=== PATIENT | male | born 1930 | race African-American/Black ===

== ENCOUNTER 2017-09-09 14:06 | Inpatient (IN) | payer OTHER ==
[~2017-09-09] VITALS: Ht 182.9 cm; Wt 78.0 kg
--- NOTE | ~2017-09-09 | 2DMMODE ---
[facility] [address] [place] [address] 2 D/M-MODE ECHOCARDIOGRAM Name: PRAMOD DODGE Room #: 351-P [facility] IN .R.#: [id number] Admission: 09/09/17 Attend Phys: Demario Piper, Discharge: Date of : 32 Date of Service: 09/10/17 1026 Report #: [id number] THIS REPORT FOR: //name// APPROVED REPORT Study performed: 09/10/2017 08:02:15 EXAM: Comprehensive 2D, Doppler, and color-flow Echocardiogram Patient Location: Echo lab Room #: [facility] Status: routine BSA: 2.00 HR: 67 bpm BP: 133/71 mmHg Rhythm: NSR Other Information Study Quality: Technically Difficult Technically limited study due to No parasternal window, lung disease. Indications Syncope Hx: Tobacco abuse, HTN, DM 2D Dimensions RVDd: 36.34 mm LVEF(%): 54.19 (>50%) IVSd: 10.76 (7-11mm) LVOT Diam: 19.69 (18-24mm) LVDd: 32.39 mm PWd: 12.35 (7-11mm) LVDs: 23.59 (25-40mm) Aortic Root: 31.33 mm Duque's LVEF: 54.19 % Volumes Left Atrial Volume (Systole) Single Plane 4CH: 46.98 mL Single Plane 2CH: 58.16 mL LA ESV Index: 29.00 mL/m2 Aortic Valve AoV Peak Preston.: 1.24 m/s AO Peak Gr.: 6.12 mmHg LVOT Max P.22 mmHg LVOT Max V: 0.90 m/s GATO Vmax: 2.21 cm2 [facility] [address] [address] 2 D/M-MODE ECHOCARDIOGRAM Name: PRAMOD DODGE Room #: 351-[facility] IN ..#: [id number] Admission: 09/09/17 Attend Phys: Demario Piper, Discharge: Date of : 32 Date of Service: 09/10/17 1026 Report #: [id number] Mitral Valve E/A Ratio: 0.9 MV Decel. Time: 286.39 ms MV E Max Preston.: 0.85 m/s MV A Preston.: 0.97 m/s MV PHT: 83.05 ms IVRT: 87.66 ms Pulmonary Vein P Vein S: 0.58 m/s P Vein A: 0.31 m/s P Vein D: 0.46 m/s P Vein A Dur.: 120.0 msec P Vein S/D Ratio: 1.26 Tricuspid Valve TR Peak Preston.: 2.58 m/s RAP Estimate: 5.00 mmHg TR Peak Gr.: 26.60 mmHg PA Pressure: 32.00 mmHg Left Ventricle The left ventricle is normal size. Borderline concentric left ventricular hypertrophy. The left ventricular systolic function is normal. The left ventricular ejection fraction is within the normal range. LVEF is 55-60%. Grade I - abnormal relaxation pattern. Right Ventricle The right ventricle is normal size. The right ventricular systolic function is normal. Atria The left atrium size is normal. The right atrium size is normal. Aortic Valve The Aortic valve is sclerotic. No aortic regurgitation is present. There is no aortic valvular stenosis. Mitral Valve There is mitral annular calcification. Mitral valve leaflets are mildly thickened. Mild mitral regurgitation. No evidence of mitral valve stenosis. Tricuspid Valve The tricuspid valve is normal in structure. Mild tricuspid regurgitation. Estimated PAP 32 mmHg. Pulmonic Valve [address] [address] 2 D/M-MODE ECHOCARDIOGRAM Name: PRAMOD DODGE Room #: 351-P [facility] IN .R.#: [id number] Admission: 09/09/17 Attend Phys: Demario Piper, Discharge: Date of : 32 Date of Service: 09/10/17 1026 Report #: [id number] Pulmonic valve is not well visualized. There is no pulmonic valvular regurgitation. Great Vessels The aortic root is normal in size. IVC is normal in size and collapses >50% with inspiration. Pericardium There is no pericardial effusion. <Conclusion> The left ventricle is normal size. LVEF is 55-60%. The Aortic valve is sclerotic. There is mitral annular calcification. Mitral valve leaflets are mildly thickened. Mild mitral regurgitation. The tricuspid valve is normal in structure. Mild tricuspid regurgitation. Estimated PAP 32 mmHg. Pulmonic valve is not well visualized. There is no pericardial effusion. <ELECTRONICALLY SIGNED> By: Severo Bernal MD 09/10/17 1026 1026 1026 Severo Bernal MD /INF
--- NOTE | ~2017-09-09 | EKG ---
[place] [address] [address] [facility] [place] [address] ELECTROCARDIOGRAM REPORT Name: PRAMOD DODGE Room #: 351-P ADM IN M.R.#: [id number] Admission: 09/09/17 Attend Phys: Demario Piper DO Discharge: Date of : 32 Report #: [id number] THIS REPORT FOR: //name// [facility] ED Test Date: 2017-09-09 Test Time: 14:08:19 Pat Name: PRAMOD DODGE Department: Room: [facility] Gender: M Traffic Counter: : [id number] Requested By: Alf Savage Order Number: [id number] MD: Pepe Enriquez Measurements Intervals [place] Rate: 59 P: 68 VT: 190 QRS: -22 QRSD: 83 T: 80 QT: 418 QTc: 414 Interpretive Statements Sinus rhythm Atrial premature complex Early R-wave progression Nonspecific T wave abnormality No previous ECG available for comparison Electronically Signed On 09-10-2017 8:49:40 CDT by Pepe Enriquez [email or web address] <ELECTRONICALLY SIGNED> By: Pepe Enriquez MD, [facility] 09/10/17 0849 1408 1408 Pepe Enriquez MD, FACC /EPI
[2017-09-09 14:07] VITALS: BP 108/57
[2017-09-09 14:32] LABS: ABSOLUTE NEUTROPHILS 3.6 thou/uL (1.4-8.2); BASOPHILS 0.4 % (0.0-2.0); EOSINOPHILS 2.3 % (0.0-3.0); HEMATOCRIT 39.9 % (42.0-52.0); HEMOGLOBIN 13.5 gm/dL (14.0-18.0); LYMPHOCYTES 27.4 % (24.0-44.0); MCH 30.8 pg (26.0-34.0); MCHC 33.9 g/dL (28.0-37.0); MCV 90.9 fL (80.0-100.0); MONOCYTES 9.1 % (1.0-8.0); PLATELET COUNT 175 thou/uL (150-400); POLYS 60.8 % (36.0-66.0); RBC 4.39 mil/uL (4.50-6.00); RDW 13.7 % (10.5-14.5); WBC 5.9 thou/uL (4.0-11.0)
[2017-09-09 14:35] LABS: ANION GAP 12 mmol/L (7-16); BUN 13 mg/dL (7-18); CALCIUM 8.2 mg/dL (8.5-10.1); CHLORIDE 105 mmol/L (98-107); CO2 23 mmol/L (21-32); CREATININE 1.5 mg/dL (0.7-1.3); GLUCOSE 127 mg/dL (74-106); SODIUM 140 mmol/L (136-145)
[2017-09-09 14:44] LABS: ALBUMIN 3.7 g/dL (3.4-5.0); MAGNESIUM 1.8 mg/dL (1.8-2.4); SGOT 21 U/L (15-37); SGPT 38 U/L (30-65); TOTAL BILIRUBIN 0.6 mg/dL (<0.1-1.0); TROPONIN-I < 0.04 ng/mL (<0.06)
[2017-09-09 15:53] VITALS: BP 97/64
[2017-09-09 15:56] LABS: CHOLESTEROL 87 mg/dL (<200); HDL CHOLESTEROL 31 mg/dL (>40); LDL CHOLESTEROL 41 mg/dL (<100); SERUM ASSESSMENT Clear; TC:HDL 2.8 Ratio (Not establshd); TRIGLYCERIDE 77 mg/dL (<150); VLDL 15 mg/dL (<40)
[2017-09-09] MEDS ORDERED: METFORMIN HCL500 MG PO (16:08)
[2017-09-09] MEDS ORDERED: LIPITOR10 MG PO (16:08)
[2017-09-09] MEDS ORDERED: ASPIR 8181 MG PO (16:08)
[2017-09-09] MEDS ORDERED: COZAAR 25 MG TA25 M1 PO (16:08)
[2017-09-09] MEDS ORDERED: OMEPRAZOLE40 MG PO (16:09)
[2017-09-09] MEDS ORDERED: NORVASC5 MG PO (16:09)
[2017-09-09] MEDS ORDERED: FLOMAX0.4 MG PO (16:09)
[2017-09-09 16:12] VITALS: BP 116/78
[2017-09-09 17:11] VITALS: BP 120/70
[2017-09-09 19:55] VITALS: BP 140/50; BP 1470/50
[2017-09-09 23:30] VITALS: BP 125/69
[2017-09-10 02:12] LABS: GLYCOHEMOGLOBIN (HGB A1C) 5.6 % (4.8-5.6)
[2017-09-10 03:55] VITALS: BP 126/67
[2017-09-10 04:00] VITALS: BP 133/71
[2017-09-10 05:17] LABS: ABSOLUTE NEUTROPHILS 3.7 thou/uL (1.4-8.2); BASOPHILS 0.4 % (0.0-2.0); EOSINOPHILS 1.8 % (0.0-3.0); HEMATOCRIT 39.2 % (42.0-52.0); HEMOGLOBIN 13.2 gm/dL (14.0-18.0); LYMPHOCYTES 30.9 % (24.0-44.0); MCH 30.6 pg (26.0-34.0); MCHC 33.6 g/dL (28.0-37.0); MONOCYTES 8.1 % (1.0-8.0); PLATELET COUNT 173 thou/uL (150-400); POLYS 58.8 % (36.0-66.0); RBC 4.31 mil/uL (4.50-6.00); RDW 13.9 % (10.5-14.5); WBC 6.4 thou/uL (4.0-11.0)
[2017-09-10 05:25] LABS: CALCIUM 8.7 mg/dL (8.5-10.1); CREATININE 1.1 mg/dL (0.7-1.3); POTASSIUM 4.1 mmol/L (3.5-5.1)
[2017-09-10 07:43] VITALS: BP 133/84
[2017-09-10 12:11] VITALS: BP 133/76
[2017-09-10 17:00] VITALS: BP 139/82
[2017-09-10 19:10] VITALS: BP 116/67
[2017-09-11 07:27] VITALS: BP 116/68
[2017-09-11] MEDS ORDERED: PRIMIDONE50 MG PO (08:43)
[2017-09-11 09:49] VITALS: BP 116/68
[2017-09-11 11:55] VITALS: BP 119/81
[2017-09-11 15:47] VITALS: BP 131/62
[2017-09-11 16:23] VITALS: BP 116/68
== END 2017-09-11 17:01 | disposition home health service (06) | DRG 312 ==
LOC: ER 14:06 → 3W 15:13 → EROBS 15:13 → 3W 16:16 → ENTRNSPT 09-11 16:48 → 3W 09-11 17:01
PROVIDERS: Emergency Medicine; Family Medicine
DX: I95.1 Orthostatic hypotension (principal); N17.9 Acute kidney failure, unspecified; I10 Essential (primary) hypertension; F17.210 Nicotine dependence, cigarettes, uncomplicated; R25.1 Tremor, unspecified; E11.9 Type 2 diabetes mellitus without complications; Z60.2 Problems related to living alone; E78.5 Hyperlipidemia, unspecified; F32.9 Major depressive disorder, single episode, unspecified; R00.1 Bradycardia, unspecified; F43.9 Reaction to severe stress, unspecified; Z79.82 Long term (current) use of aspirin; Z79.899 Other long term (current) drug therapy
CPT/HCPCS: 10879